=== PATIENT | female | born 1980 | race Two or more races ===

== ENCOUNTER 2023-10-08 09:52 | Emergency (ER) | payer SELFPAY ==
[~2023-10-08] VITALS: Ht 157.5 cm; Wt 50.0 kg
[2023-10-08 09:54] VITALS: BP 132/75; PULSE 95; RESP 16; TEMP 97.8
[2023-10-08 10:38] LABS: BASOPHILS % (AUTO) 0.2 % (0.0-2.0); EOSINOPHILS % (AUTO) 0 % (1.0-6.0); HEMATOCRIT 36.5 % (36-46); HEMOGLOBIN 12.1 g/dL (12.0-16.0); LYMPHOCYTES # (AUTO) 0.6 K/uL (1.0-4.8); LYMPHOCYTES % (AUTO) 4.1 % (22.0-44.0); MEAN CORPUSCULAR HEMOGLOBIN 29.6 pg (26.0-34.0); MEAN CORPUSCULAR HGB CONC 33.2 G/dL (31.0-37.0); MEAN CORPUSCULAR VOLUME 89 fL (80-100); MONOCYTES # (AUTO) 0.5 K/uL (0.1-1.0); MONOCYTES % (AUTO) 3.1 % (2.0-9.0); NEUTROPHILS # (AUTO) 14.2 K/uL (1.8-7.7); PLATELET COUNT (AUTO) 357 K/uL (150-450); RED CELL DISTRIBUTION WIDTH 15.7 % (11.5-14.5); WHITE BLOOD COUNT (AUTO) 15.4 K/uL (4.5-11.0)
[2023-10-08 10:40] LABS: NEUTROPHILS % (AUTO) 92.6 % (40.0-70.0)
[2023-10-08 11:08] LABS: ANION GAP 24 mmol/L (8-16); CALCIUM, TOTAL 9.3 mg/dL (8.8-10.5); CARBON DIOXIDE 17 mmol/L (22-29); CHLORIDE 99 mmol/L (98-107); CREATININE 0.78 mg/dL (0.60-1.30); GLOMERULAR FILTR. RATE CALC > 60 mL/min (>60); GLUCOSE,RANDOM 160 mg/dL (70-110); POTASSIUM 3.4 mmol/L (3.5-5.1); SODIUM SERUM 140 mmol/L (136-145); UREA NITROGEN, BLOOD 18 mg/dL (7-18)
[2023-10-08 11:20] LABS: ALANINE AMINOTRANSFERASE 19 U/L (12-78); ALBUMIN 4.1 g/dL (3.4-5.0); ALKALINE PHOSPHATASE 69 U/L (46-116); ASPARTATE AMINOTRANSFERASE 19 U/L (15-37); BILIRUBIN,TOTAL 0.9 mg/dL (0.1-1.0); HCG,QUANTITATIVE < 1 mIU/mL (0-6); LIPASE 15 U/L (16-77); TOTAL PROTEIN, SERUM 8.6 g/dL (6.4-8.2)
[2023-10-08] MEDS: SODIUM CHLORIDE 0.9% 1,000 ML IV ONE (11:23)
[2023-10-08] MEDS: CIPROFLOXACIN HCL 250 MG TABLET PO ONE (11:24)
[2023-10-08] MEDS: ONDANSETRON HCL 4 MG/2 ML VIAL IVP ONE (11:24)
[2023-10-08] MEDS: DiphenhydrAMINE HCL 50 MG/ML VIAL IVP ONE (12:41)
[2023-10-08] MEDS: HALOPERIDOL LACTATE 5 MG/ML VIAL IVP ONE (12:41)
[2023-10-08 13:22] LABS: ALCOHOL, URINE DRUG SCREEN NEGATIVE (NEGATIVE); AMPHET/METH SCREEN,URINE NEGATIVE (NEGATIVE); BARBITURATE SCREEN, URINE NEGATIVE (NEGATIVE); BENZODIAZEPINES SCREEN,URINE NEGATIVE (NEGATIVE); CANNABINOID SCREEN,URINE POSITIVE (NEGATIVE); COCAINE SCREEN,URINE NEGATIVE (NEGATIVE); METHADONE SCREEN, URINE NEGATIVE (NEGATIVE); OPIATE SCREEN,URINE NEGATIVE (NEGATIVE); PHENCYCLIDINE SCREEN,URINE NEGATIVE (NEGATIVE)
[2023-10-08 13:44] LABS: APPEARANCE,URINE CLEAR (CLEAR); BILIRUBIN,URINE NEGATIVE (NEGATIVE); COLOR,URINE YELLOW (YELLOW); GLUCOSE, URINE (UA) NEGATIVE (NEGATIVE); KETONES,URINE =>150 mg/dL (NEGATIVE); LEUKOCYTE ESTERASE ,URINE SMALL (NEGATIVE); NITRATE,URINE NEGATIVE (NEGATIVE); OCCULT BLOOD,URINE SMALL (NEGATIVE); PROTEIN,URINE 30-70 mg/dL (NEGATIVE); SPECIFIC GRAVITIY, URINE 1.032 (1.003-1.030); UROBILINOGEN,URINE <=1.0 mg/dL (<=1.0)
[2023-10-08 13:58] LABS: BACTERIA,URINE Moderate /HPF (None Seen); SQUAMOUS EPITHELIAL CELL,UR Moderate /LPF (None Seen)
[2023-10-08] MEDS ORDERED: ONDA-104 PO (14:02)
== END 2023-10-08 14:42 | disposition home or self-care (01) ==
LOC: EMS 09:54
DX: R11.10 Vomiting, unspecified (principal); E86.0 Dehydration; F12.90 Cannabis use, unspecified, uncomplicated
CPT/HCPCS: 99284; 96374; 96375; 96361; 80053; 81001; 83036; 83690; 84702; 85025; 36415; 87086; 87186; 80307; J1200; J1630; J2405; J7030